=== PATIENT | male | born 1950 | race Caucasian/White ===

== ENCOUNTER 2017-10-12 00:34 | Emergency (ER) | payer MEDICAID, MEDICARE ==
[2017-10-12 00:56] VITALS: BP 126/81; PULSE 71; RESP 18; TEMP 97.8; O2SAT 100
--- NOTE | 2017-10-12 00:56 | ED PDOC ---
HPI: CCC, URI, Sore Throat Time Seen by Provider: 10/12/17 00:41 Chief Complaint (Nursing): ENT Problem Chief Complaint (Provider): sore throat History Per: Patient History/Exam Limitations: no limitations Onset/Duration Of Symptoms: Hrs Current Symptoms Are (Timing): Still Present Location Of Pain: Throat Associated Symptoms: Chills, Sore Throat, Cough, Nasal Congestion Severity: Moderate Additional Complaint(s): 67 y/o M with PMhx of hypothyroid presents with daughter c/o sore throat since earlier today. Patient was also having chills and has had a cough with some runny nose for 1-2 days. Denies vomiting, nausea, diarrhea, CP, SOB, palpitations, dysphagia or difficulty opening his mouth. 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 Past Medical History Vital Signs: Last Vital Signs Temp 97.8 F 10/12/17 00:45 Pulse 71 10/12/17 00:45 Resp 18 10/12/17 00:45 BP 126/81 10/12/17 00:45 Pulse Ox 100 10/12/17 01:12 - Medical History PMH: Gastritis, Hypothyroidism - Surgical History Other surgeries: R/arm trauma - Family History Family History: States: Unknown Family Hx - Social History Current smoker - smoking cessation education provided: No Alcohol: Occasional - Immunization History Hx Tetanus Toxoid Vaccination: No Hx Influenza Vaccination: No Hx Pneumococcal Vaccination: No - Home Medications Home Medications: Ambulatory Orders Medication Instructions Recorded Famotidine [Pepcid] 20 mg PO HS #20 tab 04/30/15 Ipratropium/Albuterol Sulfate 6 ml IH 5XD #100 wilmer 04/30/15 [Duoneb 3 mg/3 ml-0.5 mg/3 ml 3 ml] Nebulizer [Compact Compressor 1 dev XX PRN PRN #1 dev 04/30/15 Nebulizer] Prednisone 2 tab PO DAILY #10 tab 04/30/15 Spacer, Inhalation [Aerochamber] 1 inh IH QID #1 dev 04/30/15 - Allergies Allergies/Adverse Reactions: Allergies Allergy/AdvReac Type Severity Reaction Status Date / Time No Known Allergies Allergy Verified 10/12/17 00:50 Curb-65 Severity Score - CURB-65 Severity Score Confusion: No Respiratory Rate greater than/equal to 30: No Systolic BP <90 or Diastolic BP less than/equal 60mmHg: No Age >64: Yes Curb-65 Score: 1 Percentage 30-day mortality: 2.7% Review of Systems ROS Statement: Except As Marked, All Systems Reviewed And Found Negative ENT: Positive for: Throat Pain Respiratory: Positive for: Cough (occasional) Physical Exam - Reviewed Vital Signs Reviewed: Yes - Physical Exam Appears: Positive for: Non-toxic, No Acute Distress Skin: Positive for: Normal Color, Warm Eye Exam: Positive for: PERRL ENT: Positive for: Pharyngeal Erythema, Tonsillar Exudate (small, punctuate ). Negative for: Nasal Congestion, Tonsillar Swelling Neck: Positive for: Supple Cardiovascular/Chest: Positive for: Regular Rate, Rhythm. Negative for: Gallop Respiratory: Positive for: Normal Breath Sounds. Negative for: Crackles, Rales , Wheezing, Respiratory Distress Gastrointestinal/Abdominal: Positive for: Soft. Negative for: Tenderness, Distended, Guarding Extremity: Positive for: Normal ROM. Negative for: Tenderness, Pedal Edema Neurologic/Psych: Positive for: Alert, Oriented, Other (anxious) - ECG O2 Sat by Pulse Oximetry: 100 - Progress ED Course And Treament: Improved after symptomatic treatment. DC home and f/u as outpatient Medical Decision Making Medical Decision Making: Sore throat Likely viral URI Toradol 30 IM once Prednisone 60 mg PO once Influenza and Rapid Strep test both neg Disposition - Clinical Impression Clinical Impression: Pharyngitis - Disposition Disposition Time: 01:45 Condition: STABLE Instructions: Pharyngitis (ED) Forms: [facility] (Ukrainian) Print Language: [place] IRISH
== END 2017-10-12 01:45 | disposition home or self-care (01) ==
LOC: H.ER 00:34
DX: J02.9 Acute pharyngitis, unspecified (principal); E03.9 Hypothyroidism, unspecified
CPT/HCPCS: 87070; 87430; 87804; 96372; 99283; J1885